=== PATIENT | male | born 1995 | race Caucasian/White ===

== ENCOUNTER → 2016-12-01 | Outpatient (CLI) | payer BC ==
[~2016-12-01] VITALS: Ht 177.8 cm; Wt 64.0 kg
[2016-12-01 16:31] VITALS: BP 131/79; PULSE 101; Ht 177.8 cm; Wt 64.0 kg
== END | disposition home or self-care (01) ==
LOC: C.NEUR 15:38
PROVIDERS: ATTEND Internal Medicine Pulmonary Disease
DX: G47.10 Hypersomnia, unspecified (principal); J45.909 Unspecified asthma, uncomplicated